=== PATIENT | female | born 1985 | race Hispanic/Latino ===

== ENCOUNTER 2017-08-14 00:08 | Inpatient (IN) | payer BC ==
[2017-08-14 00:30] VITALS: BMI 29.3
[2017-08-14] MEDS ORDERED: ceFAZolin 2 GM in Sodium Chloride 0.9% 100 ML IVPB ONE (00:37)
[2017-08-14] MEDS ORDERED: Oxytocin 30 units/LR 500ML 30 U/500 ML BAG IV PRN (00:38)
[2017-08-14] MEDS ORDERED: Lactated Ringer's 1,000 ML IV SCH (00:45)
[2017-08-14 01:34] LABS: BASO % 0.2 % (0.0-2.0); EOS % 0.4 % (0.0-4.0); HEMOGLOBIN 11.7 g/dL (12.0-16.0); LYMPH # 2.1 K/uL (1.0-4.3); LYMPH % 21.9 % (20.0-40.0); MEAN CELL VOLUME 97.5 fl (81.0-99.0); MEAN CORPUSCULAR HEMOGLOBIN 32.6 pg (27.0-31.0); MEAN CORPUSCULAR HGB CONC 33.4 g/dL (33.0-37.0); MEAN PLATELET VOLUME 9.8 fl (7.2-11.7); MONO # 0.6 K/uL (0.0-0.8); MONO % 6.6 % (0.0-10.0); NEUT # 6.8 K/uL (1.8-7.0); NEUT % 70.9 % (50.0-75.0); RBC 3.6 Mil/uL (3.80-5.20); WHITE BLOOD COUNT 9.7 K/uL (4.8-10.8)
[2017-08-14] MEDS: Lactated Ringer's 1,000 ML IV SCH ×4 (05:05→18:45)
[2017-08-14] MEDS ORDERED: Morphine 1 mg/ml preservative-free Inj(Duramorph) ONE (05:46)
[2017-08-14] MEDS ORDERED: ePHEDrine 50 mg/ml Inj ONE ×2 (06:00→06:14)
[2017-08-14] MEDS ORDERED: Phenylephrine 10 mg/ml Inj ONE (06:07)
--- NOTE | 2017-08-14 06:23 | DELATT ---
Datetime: 08/14/2017 01:02 Del Note Departure Status: Nursery Del Note Time: 30 Del Note Status: FT female, AGA, RCS, ABG 12/15. Del Note Reason for Attend Other: RCS Del Note Interventions: Assessment; Stimulation; Drying Del Note Reason for Attending: Section LEA/NICU Del Atten Note Adm
--- NOTE | 2017-08-14 06:24 | NBADN ---
Datetime: 08/14/2017 06:21 Nsy Prov Gen Appearance: Within Normal Limits Nsy Prov Gen Appearance: Within Normal Limits Nsy Prov Skin: Within Normal Limits Nsy Prov Neuro: Normal Tone; [place]; Grasp; Root; Suck Nsy Prov Musculoskeletal: Within Normal Limits; Full Range of Motion; Spontaneous Movement All Extre mities; Intact Clavicles; Clavicles without Crepitus; Gluteal Folds Symmetrical; Spine Within Normal Limits; No Sacral Dimple/Cyst Nsy Prov Head: Normal Fontanelles; Normocephalic; Sutures WNL Nsy Prov EENT: Mouth Within Normal Limits; Ears Within Normal Limits; Eyes Within Normal Limits; Eye s Red Reflex Bilaterally; Nose Within Normal Limits; Face Within Normal Limits Nsy Prov Cardiovascular: Within Normal Limits; Normal Pulses Nsy Prov Respiratory: Within Normal Limits Nsy Prov GI: Within Normal Limits; Soft; Normal Liver; Non Palpable Spleen; Patent Anus Nsy Prov Umbilicus: Within Normal Limits; Three Vessel Cord Nsy Prov : Normal Female Genitalia Nsy Prov Impression: Healthy Term ; Vital Signs Appropriate; Bonding Appropriately; Voiding a nd Stooling Nsy Prov Plan: Continue [place] [facility] Nsy Prov Impression/Plan Details: FT female, AGA, RCS. Datetime: 08/14/2017 01:02 Mother's Rule Inc Maternal Age: Age >=35 at GLEN not specified Mother's Rule Thalassemia: Thalassemia History not specified Mother's Rule Neural Tube Defect: Neural Tube Defect History not specified Mother's Rule Congenital Heart: Congenital Heart Defect not specified Mother's Rule Down Syndrome: Down Syndrome History not specified Mother's Rule Bernardo-Sachs: Bernardo-Sachs History not specified Mother's Rule Lindsey: Lindsey History not specified Mother's Rule Familial Dysauto: Familial Dysautonomia History not specified Mother's Rule Sickle Cell: Sickle Cell Disease/Trait History not specified Mother's Rule Hemophilia: Hemophilia/Blood Disorder History not specified Mother's Rule Muscular Dystrophy: Muscular Dystrophy History not specified Mother's Rule Cystic Fibrosis: Cystic Fibrosis History not specified Mother's Rule Stutsman's Chor: Stutsman's Chorea History not specified Mother's Rule Mental Retardation: Mental Retardation/Autism History not specified Mother's Rule Fragile X: Fragile X Testing History not specified Mother's Rule Oth Inherited DO: Other Inherited/Chromosomal Disorders not specified Mother's Rule Maternal Metabolic: Maternal Metabolic History not specified Mother's Rule FOB Defects: Pt Father or FOB Defect History not specified Mother's Rule Hx Stillborn MBL: Loss/Stillborn History not specified Mother's Rule Other Genetic Hx: Other Genetic History not specified Mother's Rule Drugs/Medications: Drugs/Medications History not specified Mother's Rule Gonorrhea: Gonorrhea History Not Specified Mother's Rule Chlamydia: Chlamydia History not specified Mother's Rule Syphilis: Syphilis History not specified Mother's Rule HIV/AIDS Exp: HIV/Aids Exposure not specified Mother's Rule HPV: Human Papillomavirus History not specified Mother's Rule Genital Herpes: Genital Herpes not specified Mother's Rule TB: Tuberculosis History not specified Mother's Rule Hepatitis: Hepatitis History Not Specified Mother's Rule Rash or Viral Ill: Rash or Viral Illness History not specified Mother's Rule Diabetes: Diabetes History not specified Mother's Rule Hypertension MBL: History of Hypertension Not Specified Mother's Rule Heart Disease: Heart Disease History not specified Mother's Rule Autoimmune: Autoimmune Disorder History not specified Mother's Rule Kidney Disease: History of Kidney Disease/UTI not specified Mother's Rule Neurologic: Neurologic/Epilepsy Disorders not specified Mother's Rule Psych Disorders: Psychiatric Disorder History not specified Mother's Rule Depression/PP Dep: Depression/ Depression History not specified Mother's Rule Hepaitis/tLiver: History of Hepatitis/Liver Disease not specified Mother's Rule Varicos/Phlebitis: Varicosities/Phlebitis History Not Specified Mother's Rule Thyroid Dysfunct: Thyroid Dysfunction not specified Mother's Rule Trauma/Violence: Trauma/Violence History Not Specified Mother's Rule Blood Transfusion: Blood Transfusion History not specified Mother's Rule Sensitization: D (Rh) Sensitization not specified Mother's Rule Pulmonary: Pulmonary (Asthma, TB) History not specified Mother's Rule Breast: Breast History not specified Mother's Rule Ship Propeller Finisher Surgery: Ship Propeller Finisher Surgery Hx not specified Mother's Rule Hosp/Surgery: Hospitalization/Surgery History not specified Mother's Rule Anesthetic Comp: Anesthetic Complications Hx not specified Mother's Rule Abnormal Pap: Abnormal Pap Smear not specified Mother's Rule Uterine Anomaly: Uterine Anomaly/DELON not specified Mother's Rule Infertility: Infertility Not Specified Mother's Rule ART Treatment: ART Treatment History not specified Mother's Rule Other Med Disease: Other Medical Diseases History not specified Mother's Rule Family History: Significant Family History not specified
[2017-08-14] MEDS ORDERED: Cellulose Hemostat 2X3 Sheet ONE (06:29)
[2017-08-14] MEDS ORDERED: Propofol 10 mg/ml Inj (20 ML) ONE (06:32)
[2017-08-14] MEDS ORDERED: Morphine 1 mg/ml preservative-free Inj(Duramorph) IT ONE (06:37)
[2017-08-14] MEDS ORDERED: DiphenhydrAMINE 50 mg/ml Inj IVP PRN ×2 (06:37→10:22)
[2017-08-14] MEDS ORDERED: Oxycodone/Acetaminophen 5/325 mg Tab PO PRN (06:52)
[2017-08-15] MEDS: Oxycodone/Acetaminophen 5/325 mg Tab PO PRN ×4 (04:08→20:23)
[2017-08-15 06:12] LABS: HEMOGLOBIN 11.1 g/dL (12.0-16.0); MEAN CELL VOLUME 97.1 fl (81.0-99.0); RBC 3.35 Mil/uL (3.80-5.20); RED CELL DISTRIBUTION WIDTH 16.2 % (11.5-14.5); WHITE BLOOD COUNT 9.8 K/uL (4.8-10.8)
[2017-08-15 06:39] LABS: ALB/GLOB RATIO 0.9 (1.0-2.1); ALBUMIN 2.6 g/dL (3.5-5.0); ALT/SGPT 28 U/L (9-52); AST/SGOT 38 U/L (14-36); BLOOD UREA NITROGEN 5 mg/dl (7-17); CALCIUM 8.6 mg/dL (8.4-10.2); GFR AFRICAN-AMERICAN > 60; GFR NON-AFRICAN AMERICAN > 60
--- NOTE | 2017-08-15 08:39 | OP ---
PROCEDURE DATE: 08/14/2017 PREOPERATIVE DIAGNOSES: Intrauterine at 39 plus weeks' gestation, previous section x1, declining vaginal after section. POSTOPERATIVE DIAGNOSES: Intrauterine at 39 plus weeks' gestation, previous section x1, declining vaginal after section. PROCEDURE: Primary low-transverse section via Pfannenstiel incision, cord blood and tissue collection. SURGEON: Kenny Case DO [employer] ASSEMBLER: Terence Ring MD (Dr. Ring is a board certified [place] physician who is available to assist on this case, his presence was vital and necessary for the procedure. He was present from the time of skin incision to delivery of the infant to the closure of the skin). ANESTHESIOLOGIST: Dr. Leal. TYPE OF ANESTHESIA: Spinal. OPERATIVE FINDINGS: Live female infant delivered from cephalic presentation. Clear amniotic fluid noted. Placenta was delivered intact manually. Ovaries and tubes appeared to be within normal limits grossly. scores of 9 and 9 given at 1 and 5 minutes respectively. She remained hemodynamically stable throughout the procedure. ESTIMATED BLOOD LOSS: 800 mL. DESCRIPTION OF PROCEDURE: Yissel was brought to the operating room, placed in supine position after successful spinal anesthesia by Dr. Leal. Edward was introduced into the bladder and left in place and noted to be draining clear urine. Compression boots were placed on both lower extremities. She was then draped and prepped in the usual sterile manner. Once adequate anesthesia was obtained, a scalpel was used to remove the previous surgical scar and then incision was then taken down to the underlying fascia using electrocautery. The fascia was nicked in the midline and then extended bilaterally using electrocautery. Inferior aspect of the fascia was grasped using 2 Mervat clamps, tented up and the rectus muscles were both bluntly and sharply dissected. The same was done with the superior aspect of the fascia using electrocautery. In the midline superiorly, the rectus muscle was grasped using 2 Allis clamps, tented up and careful dissection was done using a scalpel until the peritoneum was identified and this was entered using Metzenbaum scissors. Incision was then extended superiorly and inferiorly with direct visualization of the bladder and intestines. Some omentum was noted attached with the anterior abdominal wall on the left side. Careful dissection was done and lysis of adhesions were done using electrocautery to release this adhesion. Bladder blade was then inserted. Bladder flap was created by incising peritoneum on using Metzenbaum scissors. Incision was then extended bilaterally using Metzenbaum scissors. Bladder blade was then inserted. Once the bladder flap was created digitally, a low transverse incision was made using a scalpel. Upon entering the uterus, incision was then extended bilaterally using bandage scissors. Rupture of membranes was performed. Clear fluid was noted. The was then delivered as atraumatically as possible. First the infant head was delivered with bulb suction nasopharyngeally. The remainder of the was then delivered as atraumatically as possible. Cord was clamped and cut. was handed to the sde in attendance. scores of 9 and 9 given at 1 and 5 minutes respectively. Cord, stem-cell collection was then performed and then sent. Cord blood was also obtained. Placenta was delivered intact manually. Uterus was then exteriorized, cleared of debris and clots. Good contracture of the uterus was noted. A 0 Vicryl suture was used to close the first layer of the uterus. Second layer of the uterus was closed using 0 Vicryl suture imbricating the first layer. Good hemostasis was assured. Under the bladder flap, some bleeding was noted. Hemostasis was assured using electrocautery. Also Surgicel was placed under the bladder flap for hemostasis. Posterior cul-de-sac was noted to be clear of debris and clots. Copious irrigation was performed. Uterus was placed back into the peritoneal cavity. Paracolic gutters were noted to be clear of debris and clots. Incision line was reinspected and noted to have good hemostasis. All equipments were removed and accounted for. A 0 Vicryl suture was used to approximate the peritoneum in a running fashion. Rectus muscle was noted to have good hemostasis, approximated with 0 Vicryl suture x2. A 0 Vicryl suture was used to approximate the fascia in a running fashion. Irrigation was performed. Hemostasis was assured using electrocautery. A 2-0 plain suture was used to approximate the subcuticular layer. A 3-0 suture was used to approximate the skin. Dermabond, Steri-Strips, and pressure bandage were applied. She tolerated the procedure well and was transferred to the recovery room in stable condition. All equipments, sponges, and needles accounted for. Kenny Case DO [facility] # [id number]
[2017-08-16] MEDS: Oxycodone/Acetaminophen 5/325 mg Tab PO PRN ×2 (04:16→11:01)
--- NOTE | 2017-08-16 09:58 | OBPPN ---
Datetime: 08/15/2017 09:54 PP Pain Prov: Within normal limits PP Nausea Prov: Denies PP Flatus Prov: Yes PP Breasts Prov: Normal PP Heart Prov: Normal PP Lungs Prov: Normal PP Abdomen/Uterus Prov: Normal PP Lochia Prov: Normal PP Vulva/Perineum Prov: Normal PP CVA Tenderness Prov: Normal PP Extremities Prov: Normal PP Comments Phys Exam Prov: Abdomen soft, nontender, nondistended Uterus firm, below umbilicus Incision clean, dry, intact No deep Tenderness bilaterally PP Impression Prov: Normal progression PP Plan Prov: Continue present management PP Progress Note Prov: Postop day #1 status post , patient recovering well Pain control Regular diet Ambulate Postoperative CBC Edward out, void check IP PP Procedures: None Vital Signs Provider PP: Reviewed; Within Normal Limits
--- NOTE | 2017-08-16 11:56 | OBDCSUM ---
Datetime: 08/16/2017 11:55 Discharged to, Provider: Home Follow up at, Provider: [facility] Disch Instr Activity: Normal activity Disch Instr Diet: Regular Discharge Instructions, Provider: Routine instructions given Discharge Diagnosis, Provider: Term Delivered Follow up in weeks, Provider: 1-2w Disch Referrals: None Contraception discussed, Prov: Yes Disch Activity Restrictions: No lifting; No sexual activity; Nothing in vagina - [place], tampon s, douche
[2017-08-16 20:32] VITALS: BP 115/75; PULSE 80; RESP 18; TEMP 97.5; O2SAT 99
== END 2017-08-16 16:27 | disposition home or self-care (01) | DRG 766 ==
LOC: H.EROB2 00:08 → H.L&D 00:34 → H.OB/GYN 10:42
PROVIDERS: ADMIT Obstetrics & Gynecology; ATTEND Obstetrics & Gynecology
PROC: 10D00Z1 Extraction of Products of Conception, Low, Open Approach (ICD-10-PCS; principal; 2017-08-14)
PROC: 4A1HXCZ Monitoring of Products of Conception, Cardiac Rate, External Approach (ICD-10-PCS; 2017-08-14)
DX: O34.219 Maternal care for unspecified type scar from previous cesarean delivery (principal); Z37.0 Single live birth; N85.8 Other specified noninflammatory disorders of uterus; Z3A.39 39 weeks gestation of pregnancy